=== PATIENT | male | born 1995 | race Two or more races ===

== ENCOUNTER 2024-06-19 11:32 | Inpatient (IN) | payer MEDICAID, OTHER ==
[~2024-06-19] VITALS: Ht 172.7 cm; Wt 47.2 kg
[2024-06-19] MEDS ORDERED: ZOLPIDEM TARTRATE 10 MG TABLET PO PRN (12:15)
[2024-06-19 12:29] LABS: BASOPHILS % (AUTO) 0.8 % (0.0-2.0); EOSINOPHILS % (AUTO) 3.1 % (1.0-6.0); HEMATOCRIT 46.3 % (41-53); HEMOGLOBIN 15.4 g/dL (13.5-17.5); LYMPHOCYTES # (AUTO) 2.7 K/uL (1.0-4.8); LYMPHOCYTES % (AUTO) 42.8 % (22.0-44.0); MEAN CORPUSCULAR HGB CONC 33.2 G/dL (31.0-37.0); MEAN CORPUSCULAR VOLUME 87 fL (80-100); MONOCYTES # (AUTO) 0.4 K/uL (0.1-1.0); NEUTROPHILS # (AUTO) 2.9 K/uL (1.8-7.7); NEUTROPHILS % (AUTO) 46.3 % (40.0-70.0); PLATELET COUNT (AUTO) 300 K/uL (150-450); RED CELL DISTRIBUTION WIDTH 14.8 % (11.5-14.5); WHITE BLOOD COUNT (AUTO) 6.4 K/uL (4.5-11.0)
[2024-06-19] MEDS ORDERED: HALOPERIDOL 5 MG TABLET PO PRN (12:30)
[2024-06-19] MEDS ORDERED: LORazepam 2 MG TABLET PO PRN (12:30)
[2024-06-19 12:37] LABS: ANION GAP 7 mmol/L (8-16); CALCIUM, TOTAL 9.6 mg/dL (8.8-10.5); CARBON DIOXIDE 29 mmol/L (22-29); CHLORIDE 100 mmol/L (98-107); CREATININE 0.86 mg/dL (0.60-1.30); GLOMERULAR FILTR. RATE CALC > 60 mL/min (>60); GLUCOSE,RANDOM 80 mg/dL (70-110); POTASSIUM 4.4 mmol/L (3.5-5.1); SODIUM SERUM 136 mmol/L (136-145); UREA NITROGEN, BLOOD 13 mg/dL (7-18)
[2024-06-19 12:38] LABS: ALCOHOL, BLOOD (SERUM) < 3 mg/dL (0-10)
[2024-06-19 13:15] LABS: COVID AG,FIA SOURCE NASAL SWAB
[2024-06-19 13:20] LABS: APPEARANCE,URINE CLEAR (CLEAR); BILIRUBIN,URINE NEGATIVE (NEGATIVE); COLOR,URINE COLORLESS (YELLOW); GLUCOSE, URINE (UA) NEGATIVE (NEGATIVE); KETONES,URINE NEGATIVE (NEGATIVE); LEUKOCYTE ESTERASE ,URINE NEGATIVE (NEGATIVE); NITRATE,URINE NEGATIVE (NEGATIVE); OCCULT BLOOD,URINE NEGATIVE (NEGATIVE); PROTEIN,URINE NEGATIVE (NEGATIVE); SPECIFIC GRAVITIY, URINE 1.004 (1.003-1.030); UROBILINOGEN,URINE <=1.0 mg/dL (<=1.0)
[2024-06-19 13:28] LABS: ALCOHOL, URINE DRUG SCREEN NEGATIVE (NEGATIVE); AMPHET/METH SCREEN,URINE NEGATIVE (NEGATIVE); BARBITURATE SCREEN, URINE NEGATIVE (NEGATIVE); BENZODIAZEPINES SCREEN,URINE NEGATIVE (NEGATIVE); CANNABINOID SCREEN,URINE NEGATIVE (NEGATIVE); COCAINE SCREEN,URINE NEGATIVE (NEGATIVE); METHADONE SCREEN, URINE NEGATIVE (NEGATIVE); OPIATE SCREEN,URINE NEGATIVE (NEGATIVE); PHENCYCLIDINE SCREEN,URINE NEGATIVE (NEGATIVE)
[2024-06-19 13:42] LABS: SARS-COV2 (COVID) ANTIGEN,FIA Negative (Negative)
[2024-06-19 16:52] VITALS: BP 121/79; PULSE 102; RESP 18; TEMP 97; O2SAT 100
[2024-06-19] MEDS: IBUPROFEN 400 MG TABLET PO PRN (18:46)
[2024-06-19 18:51] VITALS: RESP 17
[2024-06-19 20:06] VITALS: BP 116/77; PULSE 94; RESP 21; TEMP 98.3; O2SAT 95
[2024-06-19] MEDS: ZOLPIDEM TARTRATE 10 MG TABLET PO PRN (21:09)
[2024-06-20] VITALS (9 sets, daily range): BP systolic 114–138; BP diastolic 74–87; PULSE 85–98; RESP 16–18; TEMP 97.2–98.9; O2SAT 96–98
[2024-06-20] MEDS ORDERED: NICOTINE 14 MG/24 HOUR PATCH TD PRN (09:45)
[2024-06-20] MEDS ORDERED: MAGNESIUM HYDROXIDE SUSPENSION 30 ML UDCUP PO PRN (09:45)
[2024-06-20] MEDS ORDERED: CloNIDine HCL 0.1 MG TABLET PO PRN (09:45)
[2024-06-20] MEDS ORDERED: PETROLATUM,WHITE 28 GM JELLY TP PRN (09:45)
[2024-06-20] MEDS ORDERED: LOPERAMIDE HCL 2 MG CAPSULE PO PRN (09:45)
[2024-06-20] MEDS ORDERED: ONDANSETRON HCL 4 MG TABLET PO PRN (09:45)
[2024-06-20] MEDS ORDERED: MAG HYDROX/ALUMINUM HYD/SIMETH ES 30 ML SUSPENSION UDCUP PO PRN (09:45)
[2024-06-20] MEDS ORDERED: ACETAMINOPHEN 325 MG TABLET PO PRN (09:45)
[2024-06-20] MEDS ORDERED: GuaiFENesin/D-METHORPHAN [SUGAR-FREE] 200-20MG/10 ML SYRUP UDCUP PO PRN (09:45)
[2024-06-20] MEDS ORDERED: DOCUSATE SODIUM 100 MG CAPSULE PO PRN (09:45)
[2024-06-20] MEDS ORDERED: ALBUTEROL SULFATE HFA 90 MCG/PUFF 8 GM INHALER IH PRN (09:45)
[2024-06-20] MEDS: SERTRALINE HCL 50 MG TABLET PO SCH (12:37)
[2024-06-21 03:07] LABS: HEPATITIS C AB (EIA) Non Reactive (Non Reactive)
[2024-06-21 08:32] VITALS: BP 117/75; PULSE 78; RESP 17; TEMP 98.6; O2SAT 95
[2024-06-21 08:56] LABS: HEMOGLOBIN A1C 5.3 % (3.8-5.6)
[2024-06-21 09:16] LABS: CHOL/HDL RATIO 1.9 (4.2-7.3); THYROID STIMULATING HORMONE 0.85 uIU/mL (0.36-3.74)
[2024-06-21 09:59] VITALS: RESP 18; O2SAT 95
[2024-06-21] MEDS: IBUPROFEN 400 MG TABLET PO PRN (09:59)
[2024-06-21 10:59] VITALS: RESP 17; O2SAT 96
[2024-06-21 18:01] VITALS: RESP 16
[2024-06-21 19:01] VITALS: RESP 16
[2024-06-21 20:56] VITALS: BP 131/100; PULSE 80; RESP 18; TEMP 97.5; O2SAT 96
[2024-06-22 09:17] VITALS: BP 133/78; PULSE 108; RESP 18; TEMP 96.7; O2SAT 98
[2024-06-22] MEDS ORDERED: SERT-439 PO (10:32)
== END 2024-06-22 13:15 | disposition home or self-care (01) | DRG 751 ==
LOC: EMS 11:32 → B2S 13:13
PROVIDERS: ADMIT Psychiatry & Neurology Child & Adolescent Psychiatry; ATTEND Psychiatry & Neurology Child & Adolescent Psychiatry
PROC: GZHZZZZ Group Psychotherapy (ICD-10-PCS; principal; 2024-06-20)
PROC: GZ51ZZZ Individual Psychotherapy, Behavioral (ICD-10-PCS; 2024-06-20)
DX: F33.2 Major depressive disorder, recurrent severe without psychotic features (principal); R45.851 Suicidal ideations; F43.12 Post-traumatic stress disorder, chronic; Z20.822 Contact with and (suspected) exposure to COVID-19; G47.00 Insomnia, unspecified; Z79.899 Other long term (current) drug therapy; Z59.00 Homelessness unspecified
CPT/HCPCS: 80048; 80061; 80307; 81003; 83036; 84443; 85025; 86803; 87340; 99285; G0480